=== PATIENT | male | born 1985 | race Two or more races ===

== ENCOUNTER 2023-05-29 19:34 | Emergency (ER) | payer MEDICAID ==
--- NOTE | 2023-05-29 20:29 | XRAY Report ---
PROCEDURE: Foot 3 View LT INDICATIONS: Trauma TECHNIQUE: 3 views of the foot were acquired. COMPARISON: None. FINDINGS: Bones: No fractures or dislocations. No suspicious bony lesions. Mild degenerative joint disease in ankle and foot. Soft tissues: No suspicious soft tissue calcifications or masses. IMPRESSION: 1. No acute bony abnormality. 2. Mild degenerative joint disease. Reviewed by: Isra Maldonado MD on 05/29/2023 8:28 PM PDT Approved by: Isra Maldonado MD on 05/29/2023 8:28 PM PDT Station ID: [id number]
[2023-05-29 20:36] VITALS: BP 118/80; O2SAT 98
--- NOTE | 2023-05-29 21:23 | ED Physician Documentation ---
History of Present Illness - Stated complaint Stated Complaint: L FOOT PX - Chief complaint Chief Complaint: Ext Problem - History obtained from History obtained from: Patient - History of Present Illness Timing: Other (1 month) Pain level max: 6 Pain level now: 6 - Additonal information Additional information: 38 year old male presents with plantar pain to the L foot x 1 month. worse with walking. Nothing makes it better. He states he wears boots at work, last changed his boots about 1 year ago. No fevers. No chills. No redness. No swelling. Patient is deaf and the kickboxing instructor was used for all interactions. Review of Systems Constitutional: denies: Fever, Chills Respiratory: denies: Cough GI: reports: Diarrhea. denies: Nausea, Vomiting PD PAST MEDICAL HISTORY - Past Medical History Past Medical History: No - Past Surgical History Past Surgical History: No - Present Medications Home Medications: Ambulatory Orders Medication Instructions Recorded Confirmed Meloxicam [Mobic] 7.5 mg PO BID PRN #20 tablet 05/29/23 - Allergies Allergies/Adverse Reactions: Allergies Allergy/AdvReac Type Severity Reaction Status Date / Time No Known Drug Allergies Allergy Verified 05/29/23 19:56 - Living Situation Living Situation: reports: With family Living Arrangement: reports: At home PD ED PE NORMAL - Vitals Vital signs reviewed: Yes - General General: Alert and oriented X 3, No acute distress - HEENT HEENT: Moist mucous membranes - Derm Derm: Warm and dry - Extremities Extremities: Other (Left foot - Tender to palpation along the plantar fascia. No significant swelling. No erythema. Neurovascular intact. No deformity. Normal examination of the Achilles tendon and calf) - Neuro Neuro: Alert and oriented X 3 Results - Vitals Vitals: Vital Signs - 24 hr 05/29/23 19:57 Temperature 37.0 C Heart Rate 60 Respiratory 16 Rate Blood Pressure 118/80 O2 Saturation 98 Oxygen O2 Source Room air - Rads (name of study) Left foot x-ray Relevant Findings:: Final report received, See rad report PD Medical Decision Making - ED course Complexity details: reviewed results, re-evaluated patient, considered differential, d/w patient ED course: No acute findings on x-ray. Exam is consistent with plantar fasciitis. We will treat conservatively, have him change his insoles, stretching with a tennis ball and frozen water bottle. Follow-up with his PCP for further care. Patient counseled regarding signs and symptoms for which I believe and urgent re- evaluation would be necessary. Patient with good understanding of and agreement to plan and is comfortable going home at this time This document was made in part using voice recognition software. While efforts are made to proofread this document, sound alike and grammatical errors may occur. Departure - Departure Disposition: 01 Home, Self Care Clinical Impression: Plantar fasciitis of left foot Condition: Good Instructions: ED Plantar Fasciitis Follow-Up: your,doctor in 1-2 weeks [Other] Prescriptions: Meloxicam [Mobic] 7.5 mg PO BID PRN #20 tablet PRN Reason: Pain Comments: Your prescriptions were sent to [facility] in [place]. Anti-inflammatory m edications can help. You should obtain new insoles for your boots. These can be bought at most stores including [employer] or [employer] or [employer]. The insole and most shoes breaks down after about 6 months. You can try rolling your foot along a tennis ball, this will help to stretch the plantar fascia and help with the pain. A frozen water bottle can be used to also roll your foot back and forth over this which will decrease the inflammation and stretch the area as well. As we discussed this can take several weeks to months to heal. Please follow-up with your doctor for further care. Forms: PCP List Discharge Date/Time: 05/29/23 21:44
== END 2023-05-29 21:44 | disposition home or self-care (01) ==
LOC: ED 19:34
DX: M72.2 Plantar fascial fibromatosis (principal)
CPT/HCPCS: 99283